=== PATIENT | female | born 1980 | race Two or more races ===

== ENCOUNTER 2021-11-07 05:57 | Day surgery (SDC) | payer OTHER ==
[~2021-11-07] VITALS: Ht 162.6 cm; Wt 90.7 kg
[~2021-11-07 05:57] MED LIST: SYNTHROID50 MCG PO
[2021-11-07] MEDS ORDERED: CEPHALEXIN500 MG PO (09:56)
[2021-11-07] MEDS ORDERED: CILOXAN5 ML OTIC (09:56)
== END 2021-11-07 11:50 | disposition home or self-care (01) ==
LOC: CIR.AMB 05:57
PROVIDERS: ATTEND Otolaryngology Otology & Neurotology
DX: H72.02 Central perforation of tympanic membrane, left ear (principal); H90.12 Conductive hearing loss, unilateral, left ear, with unrestricted hearing on the contralateral side; Z20.822 Contact with and (suspected) exposure to COVID-19; Z71.6 Tobacco abuse counseling; F17.210 Nicotine dependence, cigarettes, uncomplicated; E03.9 Hypothyroidism, unspecified; R42 Dizziness and giddiness